=== PATIENT | male | born 1980 | race Caucasian/White ===

== ENCOUNTER 2017-05-01 21:30 | Emergency (ER) | payer OTHER ==
[~2017-05-01] VITALS: Ht 170.2 cm; Wt 113.4 kg
[2017-05-01 21:30] VITALS: BP 133/90
[~2017-05-01 21:30] MED LIST: OMEPRAZOLE10 M1 ORAL
[2017-05-01 22:15] LABS: BASOPHILS % (AUTO) 1.5 % (0.0-2.0); EOSINOPHILS % (AUTO) 1.7 % (0.0-3.0); LYMPHOCYTES % (AUTO) 26.8 % (20.0-45.0); MEAN CORPUSCULAR HGB CONC 34.7 G/DL (32.0-36.0); MEAN CORPUSCULAR VOLUME 95 FL (80-99); MEAN PLATELET VOLUME 6.4 FL (6.5-10.1); MONOCYTES % (AUTO) 6.7 % (1.0-10.0); NEUTROPHILS % (AUTO) 63.3 % (45.0-75.0); PLATELET COUNT 315 K/UL (150-450); RED BLOOD COUNT 3.85 M/UL (4.70-6.10); RED CELL DISTRIBUTION WIDTH 11.5 % (11.6-14.8)
[2017-05-01 22:27] LABS: ALANINE AMINOTRANSFERASE 34 U/L (3-41); ALBUMIN/GLOBULIN RATIO 1.4 (1.0-2.7); ANION GAP 20 (5-15); ASPARTATE AMINO TRANSFERASE 29 U/L (5-40); CALCIUM 9.2 mg/dL (8.6-10.2); CARBON DIOXIDE 19 mEQ/L (20-30); CHLORIDE 96 mEQ/L (98-107); GLOMERULAR FILTRATION RATE > 60 mL/min (>60); HEMOLYSIS 3; POTASSIUM 3.1 mEQ/L (3.4-4.9); PROTHROMBIN TIME 10.2 SEC (9.30-11.50); SODIUM 135 mEQ/L (135-145); TOTAL PROTEIN 7.2 g/dL (6.6-8.7); TROPONIN I < 0.30 ng/mL (<=0.30)
--- NOTE | 2017-05-01 22:28 | Emergency Room Report ---
History of Present Illness General Chief Complaint: Syncope Source: Patient, EMS Present Illness HPI The patient was talking with people and started to feel lightheaded. The next he knew people were helping him up. He denies any head trauma when he passed out. He's felt somewhat dehydrated. He denies any chest pain, palpitations, or nausea prior to the event. He's never passed out before. Denies any major medical problems. He's not been with diarrhea or dysuria. He denies any melena. No seizure activity noted. Feels back to normal self except for dry mouth. No blood clots, inactivity, leg/calf swelling. Taking PREP. 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 Nursing Documentation: PMH: Agreed, PSxH: Agreed Nursing Documentation-PMH Hx Gastrointestinal Problems: Yes - Acid reflux Review of Systems All Other Systems: negative except mentioned in HPI Physical Exam Vital Signs Date Time Temp Pulse Resp B/P Pulse Ox O2 Delivery O2 Flow Rate FiO2 05/01/17 21:22 98.4 121 16 133/90 94 Room Air Sp02 EP Interpretation: reviewed, normal General Appearance: well appearing, no apparent distress, GCS 15 Head: normocephalic Eyes: bilateral eye EOMI, bilateral eye PERRL, bilateral eye normal inspection ENT: dry mucus membranes Neck: supple Respiratory: lungs clear, normal breath sounds Cardiovascular #1: no edema, no murmur, tachycardia Cardiovascular #2: 2+ radial (R) Gastrointestinal: normal inspection, normal bowel sounds, non tender, no mass, non-distended, overweight Rectal: heme negative stool Musculoskeletal: back normal, gait/station normal, normal range of motion, no calf tenderness Neurologic: alert, oriented x3, water superintendent III-XII nml as tested, motor strength/tone normal, DTRs symmetric, sensory intact, cerebellar normal, speech normal, no Babinski Psychiatric: mood/affect normal Skin: normal inspection, warm/dry Medical Decision Making Diagnostic Impression: Primary Impression: Syncope Qualified Codes: R55 - Syncope and collapse Additional Impressions: Hypokalemia Anemia Qualified Codes: D64.9 - Anemia, unspecified ER Course Patient with syncope. Ddx; AMI, arrhythmia, dehydration, electrolyte abnormality amongst others. Exam against PE. Evaluation with labs, EKG. Non- focal neuro at this time, doubt CT would contribute. No chest symptoms. Treated with IV hydration. EKG ST. Labs with anemia, low potassium. Given potassium here. Tachycardia fluctuates. Rectal done to exclude occult GI bleed. Guaiac negative. Patient improved Laboratory Tests Test 05/01/17 21:50 White Blood Count 9.0 K/UL (4.8-10.8) Red Blood Count 3.85 M/UL (4.70-6.10) L Hemoglobin 12.7 G/DL (14.2-18.0) L Hematocrit 36.7 % (42.0-52.0) L Mean Corpuscular Volume 95 FL (80-99) Mean Corpuscular Hemoglobin 33.0 PG (27.0-31.0) H Mean Corpuscular Hemoglobin Concent 34.7 G/DL (32.0-36.0) Red Cell Distribution Width 11.5 % (11.6-14.8) L Platelet Count 315 K/UL (150-450) Mean Platelet Volume 6.4 FL (6.5-10.1) L Neutrophils (%) (Auto) 63.3 % (45.0-75.0) Lymphocytes (%) (Auto) 26.8 % (20.0-45.0) Monocytes (%) (Auto) 6.7 % (1.0-10.0) Eosinophils (%) (Auto) 1.7 % (0.0-3.0) Basophils (%) (Auto) 1.5 % (0.0-2.0) Prothrombin Time 10.2 SEC (9.30-11.50) Prothrombin Time INR 1.0 (0.9-1.1) PTT 22 SEC (23-33) L Sodium Level 135 mEQ/L (135-145) Potassium Level 3.1 mEQ/L (3.4-4.9) L Chloride Level 96 mEQ/L (98-107) L Carbon Dioxide Level 19 mEQ/L (20-30) L Anion Gap 20 (5-15) H Blood Urea Nitrogen 14 mg/dL (7-23) Creatinine 1.0 mg/dL (0.7-1.2) Estimate Glomerular Filtration Rate > 60 mL/min (>60) Glucose Level 108 mg/dL (74-106) H Calcium Level 9.2 mg/dL (8.6-10.2) Total Bilirubin 0.6 mg/dL (0.0-1.2) Aspartate Amino Transferase (AST) 29 U/L (5-40) Alanine Aminotransferase (ALT) 34 U/L (3-41) Alkaline Phosphatase 105 U/L (40-129) Total Creatine Kinase 141 U/L (38-174) Troponin I < 0.30 ng/mL (<=0.30) Total Protein 7.2 g/dL (6.6-8.7) Albumin 4.3 g/dL (3.5-5.2) Globulin 2.9 g/dL Albumin/Globulin Ratio 1.4 (1.0-2.7) EKG Diagnostic Results Rate: tachycardiac ST Segments: no acute changes Rhythm Strip Diag. Results EP Interpretation: yes Rhythm: no PVC's, no ectopy, other - Sinus tachycardia Last Vital Signs Date Time Temp Pulse Resp B/P Pulse Ox O2 Delivery O2 Flow Rate FiO2 05/02/17 02:00 98.2 98 15 135/90 100 Room Air Status: improved Disposition: HOME, SELF-CARE Condition: Improved Scripts Multivitamin With Minerals (MULTIVITAMINS WITH MINERALS*) 1 Each Tablet 1 TAB ORAL DAILY, #30 TAB Prov: Jayant Gurrola M.D. 05/02/17 Jayant Gurrola M.D. May 01, 2017 22:28
[2017-05-01 22:50] VITALS: BP_SYST 118; BP_SYST 126; BP_SYST 133; BP_DIAS 71; BP_DIAS 84; BP_DIAS 86
[2017-05-01] MEDS ORDERED: KCl 10% 40mEq/30ml liquid ORAL STA (23:21)
[2017-05-01 23:30] VITALS: BP 123/87
[2017-05-02 00:25] VITALS: BP 127/71
[2017-05-02] MEDS ORDERED: MULTIVITAMINS1 EAC8 ORAL (01:36)
[2017-05-02 01:50] VITALS: BP 135/90
[2017-05-02 02:00] VITALS: BP 135/90
== END 2017-05-02 02:00 | disposition home or self-care (01) ==
LOC: EDBD 21:30 → EMR 22:00
DX: R55 Syncope and collapse (principal); E87.6 Hypokalemia; D64.9 Anemia, unspecified; K21.9 Gastro-esophageal reflux disease without esophagitis; F17.200 Nicotine dependence, unspecified, uncomplicated
CPT/HCPCS: 36415; 80053; 82550; 82962; 84484; 85025; 85610; 85730; 93005; 96361; 96374